=== PATIENT | male | born 1995 | race African-American/Black ===

== ENCOUNTER 2020-12-29 00:42 | Emergency (ER) | payer OTHER, MEDICAID ==
[~2020-12-29] VITALS: Ht 182.9 cm; Wt 50.0 kg
[2020-12-29] MEDS ORDERED: ONDANSETRON HCL 4MG/2ML INJ IV STA (00:48)
[2020-12-29] MEDS ORDERED: MORPHINE SULFATE 4 MG/ML CPJ (NOT FOR IM USE) IV STA (00:48)
[2020-12-29] MEDS ORDERED: CEFAZOLIN 1000MG PREMIX 50 ML IV ONE (01:00)
[2020-12-29] MEDS ORDERED: SODIUM CHLORIDE 0.9% 1,000 ML IV ONE (01:00)
[2020-12-29] MEDS ORDERED: TETANUS, DIPHTHERIA, PERTUSSIS VAC/PF 0.5ML (>10YR OLD) IM ONE (01:00)
[2020-12-29] MEDS ORDERED: MORPHINE SULFATE 4 MG/ML CPJ (NOT FOR IM USE) IV ONE (01:15)
[2020-12-29 01:18] VITALS: BP 114/66
[2020-12-29 01:45] LABS: BASOPHILS % 0.4 % (0.0-2.0); EOSINOPHILS % 0.9 % (0.0-5.0); HEMATOCRIT. 46.3 % (42.0-52.0); HEMOGLOBIN. 15.2 g/dL (14.0-18.0); LYMPHOCYTES % 44.8 % (20.0-50.0); MEAN CORPUSCULAR HEMOGLOBIN 27.7 pg (28.0-32.0); MEAN CORPUSCULAR VOLUME 84.2 fL (80.0-94.0); MEAN PLATELET VOLUME 8.6 fl (7.4-10.4); MONOCYTES % 9.7 % (2.0-8.0); NEUTROPHILS % 44.2 % (40.0-76.0); PLATELET 367 x1000/uL (130-400); RED CELL DISTRIBUTION WIDTH 13.6 % (11.6-14.6)
[2020-12-29 01:46] LABS: CHLORIDE 103 mEq/L (98-107)
== END 2020-12-29 01:48 | disposition short-term general hospital (02) ==
LOC: ER 00:42
DX: S82.251B Displaced comminuted fracture of shaft of right tibia, initial encounter for open fracture type I or II (principal); S82.451B Displaced comminuted fracture of shaft of right fibula, initial encounter for open fracture type I or II; S61.314A Laceration without foreign body of right ring finger with damage to nail, initial encounter; X95.9XXA Assault by unspecified firearm discharge, initial encounter; Y93.9 Activity, unspecified; Y92.9 Unspecified place or not applicable; R45.1 Restlessness and agitation
CPT/HCPCS: 27825; 36415; 73590; 80053; 83690; 85025; 86850; 86900; 86901; 90471; 90715; 96365; 96375; 99291; J0690; J2270; J2405; J7030

== ENCOUNTER 2021-01-11 00:02 | Emergency (ER) | payer MEDICAID, OTHER ==
[~2021-01-11] VITALS: Ht 182.9 cm; Wt 73.0 kg
[2021-01-11 03:07] LABS: BASOPHILS % 0.7 % (0.0-2.0); EOSINOPHILS % 2.5 % (0.0-5.0); HEMOGLOBIN. 9.1 g/dL (14.0-18.0); LYMPHOCYTES % 25.2 % (20.0-50.0); MEAN CORPUSCULAR HEMOGLOBIN 28.4 pg (28.0-32.0); MEAN CORPUSCULAR VOLUME 84.1 fL (80.0-94.0); MONOCYTES % 7.1 % (2.0-8.0); NEUTROPHILS % 64.5 % (40.0-76.0); PLATELET 683 x1000/uL (130-400); RED BLOOD CELL COUNT 3.21 mill/uL (4.7-6.1); RED CELL DISTRIBUTION WIDTH 13.7 % (11.6-14.6)
[2021-01-11 03:16] LABS: CHLORIDE 106 mEq/L (98-107)
[2021-01-11 03:36] VITALS: BP 116/63
== END 2021-01-11 03:38 | disposition left against medical advice (07) ==
LOC: ER 00:02
DX: M79.661 Pain in right lower leg (principal); J45.909 Unspecified asthma, uncomplicated; Z98.890 Other specified postprocedural states; Z87.828 Personal history of other (healed) physical injury and trauma
CPT/HCPCS: 36415; 80053; 85025; 93005; 93971; 99285

== ENCOUNTER 2021-09-08 08:54 | Inpatient (IN) | payer MEDICAID, OTHER ==
[~2021-09-08] VITALS: Ht 182.9 cm; Wt 72.1 kg
[2021-09-08] MEDS ORDERED: SODIUM CHLORIDE 0.9% 1000ML BAG (SEPSIS BOLUS) IV ONE (09:30)
[2021-09-08 10:03] LABS: HEMATOCRIT. 34.7 % (42.0-52.0); HEMOGLOBIN. 11.5 g/dL (14.0-18.0); MEAN CORPUSCULAR VOLUME 72.7 fL (80.0-94.0); MEAN PLATELET VOLUME 7.6 fl (7.4-10.4); PLATELET 451 x1000/uL (130-400); RED BLOOD CELL COUNT 4.77 mill/uL (4.7-6.1); RED CELL DISTRIBUTION WIDTH 16.7 % (11.6-14.6)
[2021-09-08 10:12] LABS: CHLORIDE 98 mEq/L (98-107)
[2021-09-08 10:25] LABS: CLARITY URINE CLEAR (CLEAR); COLOR URINE YELLOW (YELLOW); KETONES URINE 3+ (NEGATIVE); LEUKOCYTE ESTERASE URINE 1+ (NEGATIVE); NITRITE URINE NEGATIVE (NEGATIVE); OCCULT BLOOD URINE 1+ (NEGATIVE); PH URINE 7.5 (4.5-8.0); PROTEIN URINE TRACE (NEGATIVE); SPECIFIC GRAVITY URINE 1.022 (1.005-1.030)
[2021-09-08 10:43] LABS: PLATELET ESTIMATE SLIGHTLY INCREASED
[2021-09-08] MEDS ORDERED: KETOROLAC 15MG/ML VIAL IV ONE (11:15)
[2021-09-08] MEDS ORDERED: PIPERACILLIN/TAZ 3.375G PREMIX 50 ML IV ONE (11:15)
[2021-09-08] MEDS ORDERED: VANCOMYCIN 1G PREMIX 200 ML IV ONE (11:15)
[2021-09-08] MEDS ORDERED: VANCOMYCIN 1GM PMX (XELLIA) 200 ML IV NR (13:00)
[2021-09-08] MEDS ORDERED: DIPHENHYDRAMINE 50MG/ML VIAL IV PRN (13:45)
[2021-09-08] MEDS ORDERED: CLONIDINE 0.1MG TABLET PO PRN (13:45)
[2021-09-08] MEDS ORDERED: MORPHINE SULFATE 2 MG/ML CPJ (NOT FOR IM USE) IV PRN (13:45)
[2021-09-08] MEDS ORDERED: ACETAMINOPHEN 325MG TABLET PO PRN (13:45)
[2021-09-08] MEDS ORDERED: ONDANSETRON HCL 4MG/2ML INJ IV PRN (13:45)
[2021-09-08] MEDS ORDERED: IPRATROPIUM/ALBUTEROL 0.5-3(2.5)MG/3ML NEB HHN PRN (13:45)
[2021-09-08] MEDS ORDERED: NALOXONE HCL 0.4MG/ML VIAL IV PRN (14:15)
[2021-09-08 16:15] VITALS: BP 122/62
[2021-09-08] MEDS ORDERED: ACET-2708 MT (17:46)
[2021-09-08 20:00] VITALS: BP 94/40
[2021-09-08] MEDS ORDERED: PIPERACILLIN/TAZOBACTAM 3.375 G in DEXTROSE 5% WATER 50 ML IV SCH (22:00)
[2021-09-08] MEDS ORDERED: VANCOMYCIN 1GM PMX (XELLIA) 200 ML IV SCH (22:00)
[2021-09-08] MEDS: PIPERACILLIN/TAZOBACTAM 3.375 G in DEXTROSE 5% WATER 50 ML IV SCH (22:08)
[2021-09-08] MEDS: VANCOMYCIN 1GM PMX (XELLIA) 200 ML IV SCH (22:09)
[2021-09-09] VITALS: BP 106/68
[2021-09-09 02:38] LABS: *AMPHETAMINES SCREEN URINE NEGATIVE (NEGATIVE); *BARBITURATES SCREEN URINE NEGATIVE (NEGATIVE); *BENZODIAZEPINES SCREEN URINE NEGATIVE (NEGATIVE); *COCAINE SCREEN URINE NEGATIVE (NEGATIVE); CANNABINOID URINE SCREEN PRESUMTIVE POSITIVE (NEGATIVE); METHADONE URINE SCREEN NEGATIVE (NEGATIVE); OPIATES URINE SCREEN NEGATIVE (NEGATIVE); PHENCYCLIDINE URINE SCREEN NEGATIVE (NEGATIVE)
[2021-09-09 04:00] VITALS: BP 121/57
[2021-09-09] MEDS: VANCOMYCIN 1GM PMX (XELLIA) 200 ML IV SCH ×3 (05:05→21:22)
[2021-09-09] MEDS: PIPERACILLIN/TAZOBACTAM 3.375 G in DEXTROSE 5% WATER 50 ML IV SCH ×3 (05:05→21:22)
[2021-09-09 07:19] LABS: BASOPHILS % 0.2 % (0.0-2.0); EOSINOPHILS % 0.6 % (0.0-5.0); HEMATOCRIT. 31.8 % (42.0-52.0); HEMOGLOBIN. 10.5 g/dL (14.0-18.0); MEAN CORPUSCULAR VOLUME 72.5 fL (80.0-94.0); MEAN PLATELET VOLUME 7.4 fl (7.4-10.4); MONOCYTES % 14.8 % (2.0-8.0); NEUTROPHILS % 72.4 % (40.0-76.0); PLATELET 401 x1000/uL (130-400); RED BLOOD CELL COUNT 4.39 mill/uL (4.7-6.1); RED CELL DISTRIBUTION WIDTH 16.4 % (11.6-14.6)
[2021-09-09 07:26] LABS: CHLORIDE 105 mEq/L (98-107)
[2021-09-09 08:00] VITALS: BP 97/51
[2021-09-09 12:00] VITALS: BP 106/65
[2021-09-09 16:00] VITALS: BP 108/62
[2021-09-09 20:00] VITALS: BP 106/61
[2021-09-10] VITALS: BP 111/66
[2021-09-10 04:00] VITALS: BP 108/59
[2021-09-10] MEDS: VANCOMYCIN 1GM PMX (XELLIA) 200 ML IV SCH ×3 (05:37→13:59)
[2021-09-10] MEDS: PIPERACILLIN/TAZOBACTAM 3.375 G in DEXTROSE 5% WATER 50 ML IV SCH ×3 (05:38→13:59)
[2021-09-10] MEDS ORDERED: DEXTROSE 50% WATER 50ML SYRINGE IV PRN (07:30)
[2021-09-10 07:37] LABS: BASOPHILS % 0.4 % (0.0-2.0); EOSINOPHILS % 2.9 % (0.0-5.0); HEMATOCRIT. 35.1 % (42.0-52.0); HEMOGLOBIN. 11.4 g/dL (14.0-18.0); LYMPHOCYTES % 20.3 % (20.0-50.0); MEAN CORPUSCULAR HEMOGLOBIN 23.7 pg (28.0-32.0); MEAN PLATELET VOLUME 7.8 fl (7.4-10.4); MONOCYTES % 11.4 % (2.0-8.0); PLATELET 456 x1000/uL (130-400); RED BLOOD CELL COUNT 4.82 mill/uL (4.7-6.1); RED CELL DISTRIBUTION WIDTH 17.1 % (11.6-14.6)
[2021-09-10] MEDS ORDERED: BLOOD SUGAR DIAGNOSTIC STRIP TEST SCH (07:40)
[2021-09-10 08:00] VITALS: BP 96/50
[2021-09-10 08:02] LABS: CHLORIDE 103 mEq/L (98-107)
[2021-09-10] MEDS ORDERED: INSULIN LISPRO 100 UNITS/ML SUBCUT SCH (08:10)
[2021-09-10] MEDS ORDERED: INSULIN GLARGINE 100 UNITS/ML SUBCUT SCH (10:00)
[2021-09-10 12:00] VITALS: BP 110/60
[2021-09-10] MEDS ORDERED: AMOX1TAB16 MT (13:15)
[2021-09-10] MEDS ORDERED: DOXY100T2 MT (13:15)
[2021-09-10] MEDS ORDERED: PANT40TA51 MT (13:15)
[2021-09-10 14:10] VITALS: BP 110/60
== END 2021-09-10 17:10 | disposition home or self-care (01) | DRG 720 ==
LOC: ER 08:54 → EDBEDREQSVC 11:16 → EDBEDREQ 11:16 → EDBEDREQTM 11:16 → 7WST 12:59 → EDBEDREQ 13:05 → EDBEDREQSVC 13:53 → ENRESERV 14:42
PROVIDERS: ADMIT Internal Medicine; ATTEND Internal Medicine
DX: A41.9 Sepsis, unspecified organism (principal); S82.201A Unspecified fracture of shaft of right tibia, initial encounter for closed fracture; L02.415 Cutaneous abscess of right lower limb; L03.115 Cellulitis of right lower limb; L03.116 Cellulitis of left lower limb; M86.9 Osteomyelitis, unspecified; J45.909 Unspecified asthma, uncomplicated; N39.0 Urinary tract infection, site not specified
CPT/HCPCS: 36415; 71045; 73590; 80048; 80053; 80202; 80305; 81003; 83605; 84145; 85025; 93005; 93971; 99285; C1893; J1885; J2270; J2543; J3370; J7030; J7060

== ENCOUNTER 2023-12-14 07:01 | Inpatient (IN) | payer OTHER ==
[~2023-12-14] VITALS: Ht 177.5 cm; Wt 80.7 kg
[~2023-12-14 07:01] MED LIST: ACET-2708 MT; AMOX1TAB16 MT; DOXY100T2 MT; PANT40TA51 MT
[2023-12-14 07:02] VITALS: O2SAT 94
[2023-12-14 07:33] LABS: BASOPHILS % 0.8 % (0.0-2.0); EOSINOPHILS % 2.7 % (0.0-5.0); HEMATOCRIT. 44.1 % (42.0-52.0); HEMOGLOBIN. 14.3 g/dL (14.0-18.0); LYMPHOCYTES % 33.5 % (20.0-50.0); MEAN CORPUSCULAR HEMOGLOBIN 29.6 pg (28.0-32.0); MEAN CORPUSCULAR HGB CONC 32.5 g/dL (31.0-37.0); MEAN CORPUSCULAR VOLUME 91.3 fL (80.0-94.0); MEAN PLATELET VOLUME 8.3 fl (7.4-10.4); PLATELET 343 x1000/uL (130-400); RED BLOOD CELL COUNT 4.83 mill/uL (4.7-6.1); WHITE BLOOD COUNT 10.1 x1000/uL (4.5-11.0)
[2023-12-14] MEDS: LEVETIRACETAM 1000MG PREMIX 100 ML IV ONE (07:48)
[2023-12-14] MEDS: SODIUM CHLORIDE 0.9% 1,000 ML IV ONE (07:49)
[2023-12-14 07:58] LABS: CHLORIDE 104 mEq/L (98-107); POTASSIUM 4.3 mEq/L (3.5-5.1); SODIUM 140 mEq/L (136-145)
[2023-12-14 07:59] LABS: CARBON DIOXIDE 12 mEq/L (21-32)
[2023-12-14 08:00] LABS: CALCIUM 10.2 mg/dL (8.7-10.4)
[2023-12-14 08:04] LABS: CREATININE 1.2 mg/dL (0.6-1.3); GLUCOSE 232 mg/dL (70-105)
[2023-12-14 08:05] LABS: UREA NITROGEN BLOOD 13 mg/dL (9-23)
[2023-12-14 08:06] LABS: ALANINE AMINOTRANSFERASE 17 IU/L (10-49); ALBUMIN 4.9 g/dL (3.2-4.8); ASPARTATE AMINOTRANSFERASE 30 IU/L (<34)
[2023-12-14 08:07] LABS: BILIRUBIN DIRECT 0.3 mg/dL (<=3.0); PROTEIN TOTAL 8.6 g/dL (6.0-8.3)
[2023-12-14 08:13] LABS: ETHANOL BLOOD < 10 mg/dL (<10); TROPONIN I HIGH SENSITIVITY < 4 ng/L (3.0-53)
[2023-12-14 10:18] VITALS: O2SAT 97
[2023-12-14 10:26] LABS: TROPONIN I HIGH SENSITIVITY 14 ng/L (3.0-53)
[2023-12-14 11:10] LABS: CLARITY URINE CLEAR (CLEAR); COLOR URINE YELLOW (YELLOW); GLUCOSE URINE NEGATIVE (NEGATIVE); KETONES URINE NEGATIVE (NEGATIVE); LEUKOCYTE ESTERASE URINE NEGATIVE (NEGATIVE); NITRITE URINE NEGATIVE (NEGATIVE); OCCULT BLOOD URINE 1+ (NEGATIVE); PH URINE 6.5 (4.5-8.0); PROTEIN URINE 1+ (NEGATIVE); SPECIFIC GRAVITY URINE 1.013 (1.005-1.030); UROBILINOGEN URINE 0.2 E.U./dL (0.2-1.0)
[2023-12-14] MEDS: ACETAMINOPHEN 325MG TABLET PO ONE (11:15)
[2023-12-14 11:32] LABS: *AMPHETAMINES SCREEN URINE NEGATIVE (NEGATIVE); *BARBITURATES SCREEN URINE NEGATIVE (NEGATIVE); *BENZODIAZEPINES SCREEN URINE PRESUMPTIVE POSITIVE (NEGATIVE); *COCAINE SCREEN URINE NEGATIVE (NEGATIVE); METHADONE URINE SCREEN NEGATIVE (NEGATIVE)
[2023-12-14 11:33] LABS: CANNABINOID URINE SCREEN PRESUMPTIVE POSITIVE (NEGATIVE); ECSTASY MDMA SCREEN URINE NEGATIVE (NEGATIVE); OPIATES URINE SCREEN NEGATIVE (NEGATIVE); PHENCYCLIDINE URINE SCREEN NEGATIVE (NEGATIVE)
[2023-12-14 11:51] LABS: MUCUS URINE TRACE /lpf (NONE/TRACE)
[2023-12-14 11:52] LABS: RBC URINE 0-2 /hpf (0-2); SQUAMOUS EPITHELIAL CELL URINE NONE SEEN /lpf (RARE/1+)
[2023-12-14 11:53] LABS: BACTERIA URINE TRACE; WBC URINE 0-2 /hpf (0-2)
[2023-12-14] MEDS: ONDANSETRON HCL 4MG/2ML INJ IV PRN (14:14)
[2023-12-14] MEDS ORDERED: NICARDIPINE 100 MG in SODIUM CHLORIDE 0.9% 60 ML IV PRN (14:15)
[2023-12-14] MEDS ORDERED: ONDANSETRON HCL 4MG/2ML INJ IV PRN (14:15)
[2023-12-14] MEDS: DEXT 5%/LACTATED RINGERS 1,000 ML IV SCH (14:31)
[2023-12-14 14:56] VITALS: BP 128/67; PULSE 70; RESP 20; TEMP 36.5848
[2023-12-14] MEDS ORDERED: DEXAMETHASONE 4MG/ML 1ML VIAL IV SCH (18:00)
[2023-12-14] MEDS ORDERED: LEVETIRACETAM 500MG PREMIX 100 ML IV SCH (21:00)
== END 2023-12-14 19:00 | disposition left against medical advice (07) | DRG 57 ==
LOC: ER 07:27 → MICUSO 13:18 → EDBEDREQTM 13:19 → EDBEDREQ 13:19 → MICUSO 17:23
PROVIDERS: ADMIT Internal Medicine; ATTEND Internal Medicine
DX: S06.2X0A Diffuse traumatic brain injury without loss of consciousness, initial encounter (principal); G93.40 Encephalopathy, unspecified; G40.909 Epilepsy, unspecified, not intractable, without status epilepticus; Z53.29 Procedure and treatment not carried out because of patient's decision for other reasons; W18.39XA Other fall on same level, initial encounter; Y93.89 Activity, other specified; Y92.89 Other specified places as the place of occurrence of the external cause; Z91.148 Patient's other noncompliance with medication regimen for other reason; T14.8XXA Other injury of unspecified body region, initial encounter
CPT/HCPCS: 36415; 71045; 80048; 80076; 80305; 80320; 81003; 83880; 84484; 85025; 86850; 86900; 93005; 99291; J1953; J2405; J7030; J7121; G0480

== ENCOUNTER 2024-10-19 20:12 | Emergency (ER) | payer OTHER ==
[~2024-10-19] VITALS: Ht 182.9 cm; Wt 77.0 kg
[2024-10-19 20:24] VITALS: O2SAT 99
[2024-10-19 21:00] VITALS: TEMP 36.5
[2024-10-19 21:09] LABS: BASOPHILS % 0.9 % (0.0-2.0); EOSINOPHILS % 2.8 % (0.0-5.0); HEMATOCRIT. 40.0 % (42.0-52.0); HEMOGLOBIN. 13.4 g/dL (14.0-18.0); LYMPHOCYTES % 33.9 % (20.0-50.0); MEAN PLATELET VOLUME 7.4 fl (7.4-10.4); MONOCYTES % 10.1 % (2.0-8.0); NEUTROPHILS % 52.3 % (40.0-76.0); PLATELET 279 x1000/uL (130-400); RED BLOOD CELL COUNT 4.72 mill/uL (4.7-6.1); RED CELL DISTRIBUTION WIDTH 13.5 % (11.6-14.6)
[2024-10-19 21:22] LABS: CREATININE 0.8 mg/dL (0.6-1.3); ETHANOL BLOOD < 10 mg/dL (<10); UREA NITROGEN BLOOD 6 mg/dL (9-23)
[2024-10-19] MEDS: LEVETIRACETAM 1000MG PREMIX 100 ML IV ONE (21:30)
[2024-10-19 23:20] VITALS: BP 105/59; PULSE 70; RESP 14; O2SAT 99
== END 2024-10-19 23:38 | disposition short-term general hospital (02) ==
LOC: ER 20:45 → CMPBEDREQ 10-20 09:10
DX: G40.909 Epilepsy, unspecified, not intractable, without status epilepticus (principal); Z79.899 Other long term (current) drug therapy
CPT/HCPCS: 80048; 80320; 85025; 36415; 70450; 93005; 96365; 99285; J1953; G0480

== ENCOUNTER 2024-12-18 23:01 | Emergency (ER) | payer OTHER ==
[~2024-12-18] VITALS: Ht 182.9 cm; Wt 75.0 kg
[2024-12-18 23:06] VITALS: O2SAT 99
[2024-12-19 00:56] LABS: BASOPHILS % 0.4 % (0.0-2.0); EOSINOPHILS % 0.1 % (0.0-5.0); HEMATOCRIT. 40.1 % (42.0-52.0); HEMOGLOBIN. 13.5 g/dL (14.0-18.0); LYMPHOCYTES % 12.1 % (20.0-50.0); MEAN PLATELET VOLUME 7.8 fl (7.4-10.4); MONOCYTES % 5.7 % (2.0-8.0); NEUTROPHILS % 81.7 % (40.0-76.0); PLATELET 290 x1000/uL (130-400); RED BLOOD CELL COUNT 4.79 mill/uL (4.7-6.1); RED CELL DISTRIBUTION WIDTH 13.5 % (11.6-14.6)
[2024-12-19 01:11] LABS: CREATININE 0.7 mg/dL (0.6-1.3); UREA NITROGEN BLOOD 6 mg/dL (9-23)
[2024-12-19 01:23] LABS: CLARITY URINE CLEAR (CLEAR); COLOR URINE YELLOW (YELLOW); GLUCOSE URINE NEGATIVE (NEGATIVE); KETONES URINE NEGATIVE (NEGATIVE); LEUKOCYTE ESTERASE URINE TRACE (NEGATIVE); NITRITE URINE NEGATIVE (NEGATIVE); OCCULT BLOOD URINE TRACE (NEGATIVE); PH URINE 6.5 (4.5-8.0); PROTEIN URINE TRACE (NEGATIVE); SPECIFIC GRAVITY URINE 1.021 (1.005-1.030); UROBILINOGEN URINE 1.0 E.U./dL (0.2-1.0)
[2024-12-19 01:25] VITALS: BP 103/51; PULSE 78; RESP 19; TEMP 36.7; O2SAT 100
[2024-12-19] MEDS ORDERED: KEPP500 MT (01:31)
[2024-12-19 01:53] LABS: *AMPHETAMINES SCREEN URINE NEGATIVE (NEGATIVE); *BARBITURATES SCREEN URINE NEGATIVE (NEGATIVE); *BENZODIAZEPINES SCREEN URINE NEGATIVE (NEGATIVE); *COCAINE SCREEN URINE NEGATIVE (NEGATIVE); CANNABINOID URINE SCREEN PRESUMPTIVE POSITIVE (NEGATIVE); ECSTASY MDMA SCREEN URINE NEGATIVE (NEGATIVE); METHADONE URINE SCREEN NEGATIVE (NEGATIVE); OPIATES URINE SCREEN NEGATIVE (NEGATIVE); PHENCYCLIDINE URINE SCREEN NEGATIVE (NEGATIVE)
[2024-12-19 05:55] LABS: BACTERIA URINE NONE SEEN; SQUAMOUS EPITHELIAL CELL URINE FEW /lpf (RARE/1+)
== END 2024-12-19 01:52 | disposition home or self-care (01) ==
LOC: ER 23:01
DX: R56.9 Unspecified convulsions (principal); F12.90 Cannabis use, unspecified, uncomplicated; Z79.899 Other long term (current) drug therapy
CPT/HCPCS: 36415; 80048; 80305; 80320; 81003; 82962; 85025; 99283; G0480